=== PATIENT | female | born 1995 | race Caucasian/White ===

== ENCOUNTER → 2016-06-20 | Outpatient (CLI) | payer OTHER ==
[~2016-06-20] MED LIST: ONDA4TAB13 SL
== END | disposition home or self-care (01) ==
LOC: STAR 08:48
PROVIDERS: ATTEND Surgery
DX: Z02.9 Encounter for administrative examinations, unspecified (principal)

== ENCOUNTER 2016-06-26 11:01 | Day surgery (SDC) | payer OTHER ==
[~2016-06-26] VITALS: Ht 160 cm; Wt 80.5 kg
[2016-06-26 11:20] VITALS: BP 131/84
[2016-06-26] MEDS ORDERED: LACTATED RINGERS 1,000 ML IV SCH (11:23)
[2016-06-26] MEDS ORDERED: LIDOCAINE 1%, 2ML SQ PRN (11:30)
[2016-06-26 12:29] LABS: HCG UR OBC PASS
[2016-06-26] MEDS ORDERED: FENTANYL PF 100 MCG/2ML ONE ×3 (12:51→14:53)
[2016-06-26] MEDS ORDERED: BUPIVACAINE/PF-EPI 0.25% 1:200K ONE (12:53)
[2016-06-26] MEDS ORDERED: SUCCINYLCHOLINE 20 MG/ML, 10ML ONE (13:21)
[2016-06-26] MEDS ORDERED: PROPOFOL 10 MG/ML, 20ML ONE (13:21)
[2016-06-26] MEDS ORDERED: ONDANSETRON 2MG/ML, 2ML ONE ×2 (13:21→14:40)
[2016-06-26] MEDS ORDERED: DEXAMETHASONE 4 MG/ML, 1ML ONE (13:21)
[2016-06-26] MEDS ORDERED: NEOSTIGMINE 1 MG/ML, 10ML ONE (13:21)
[2016-06-26] MEDS ORDERED: KETOROLAC 30 MG/1 ML ONE (13:21)
[2016-06-26] MEDS ORDERED: ROCURONIUM 10 MG/ML ONE (13:21)
[2016-06-26] MEDS ORDERED: METOCLOPRAMIDE 5 MG/ML, 2ML ONE (13:21)
[2016-06-26] MEDS ORDERED: CEFAZOLIN 1,000 MG ONE (13:21)
[2016-06-26] MEDS ORDERED: GLYCOPYRROLATE 0.2MG/1ML ONE (13:21)
[2016-06-26] MEDS ORDERED: MEPERIDINE/PF 25MG/0.5ML IVPush PRN (14:00)
[2016-06-26] MEDS ORDERED: MIDAZOLAM 1 MG/ML, 2ML IV PRN (14:00)
[2016-06-26] MEDS ORDERED: LABETALOL 5MG/ML, 20ML IV PRN (14:00)
[2016-06-26] MEDS ORDERED: ONDANSETRON 2MG/ML, 2ML IVPush PRN (14:00)
[2016-06-26] MEDS ORDERED: HYDROmorphone 1 MG/ML, 1ML IV PRN (14:00)
[2016-06-26] MEDS ORDERED: PROMETHAZINE 25 MG/ML, 1ML IV PRN (14:00)
[2016-06-26] MEDS ORDERED: MEPERIDINE/PF 25MG/0.5ML ONE (14:15)
[2016-06-26] MEDS ORDERED: OXYcodone 5 MG/5 ML ORAL.SOL UDC ONE (14:16)
[2016-06-26] MEDS: FENTANYL PF 100 MCG/2ML IV PRN ×4 (14:25→15:13)
[2016-06-26] MEDS ORDERED: MIDAZOLAM 1 MG/ML, 2ML ONE (14:31)
[2016-06-26] MEDS: OXYcodone 5 MG/5 ML ORAL.SOL UDC PO PRN ×2 (15:10→15:11)
[2016-06-26] MEDS ORDERED: HYDROmorphone 2 MG/ML, 1ML ONE (15:19)
== END 2016-06-26 18:40 | disposition home or self-care (01) ==
LOC: OUT 11:01
PROVIDERS: ATTEND Surgery
DX: K81.1 Chronic cholecystitis (principal); Z72.89 Other problems related to lifestyle; Z83.3 Family history of diabetes mellitus; Z80.0 Family history of malignant neoplasm of digestive organs
CPT/HCPCS: 47562; 81025; 88304; J0330; J0690; J1100; J1170; J1885; J2175; J2250; J2405; J2704; J2710; J2765; J3010; J3490; J7120

== ENCOUNTER 2019-07-26 13:27 | Emergency (ER) | payer OTHER ==
[~2019-07-26] VITALS: Ht 160 cm; Wt 88.6 kg
[2019-07-26 13:34] VITALS: BP 134/87
[2019-07-26] MEDS ORDERED: MAALOX/HYOSCYAMINE/LIDOCAINE 45 ML BTL PO ONE (14:30)
[2019-07-26] MEDS ORDERED: FAMOTIDINE 20 MG/2 ML IVPush ONE (14:30)
[2019-07-26] MEDS ORDERED: SODIUM CHLORIDE FLUSH 10ML SYR IVF ONE (14:30)
[2019-07-26] MEDS ORDERED: ONDANSETRON 2MG/ML, 2ML IVPush ONE (14:30)
[2019-07-26] MEDS ORDERED: FAMOTIDINE 20 MG/2 ML ONE (14:36)
[2019-07-26] MEDS ORDERED: MAALOX/HYOSCYAMINE/LIDOCAINE 45 ML BTL ONE (14:36)
[2019-07-26] MEDS ORDERED: ONDANSETRON 2MG/ML, 2ML ONE (14:36)
[2019-07-26 14:53] LABS: BASOPHILS % (AUTO) 0 % (0-1); EOSINOPHILS # (AUTO) 0.01 x10^3/uL (0-0.4); EOSINOPHILS % (AUTO) 0 % (1-7); LYMPHOCYTES # (AUTO) 0.71 x10^3/uL (1-3.4); LYMPHOCYTES % (AUTO) 10 % (22-44); MD NO; MEAN CORPUSCULAR HEMOGLOBIN 29.3 pg (27.0-34.8); MEAN CORPUSCULAR HGB CONC 33.1 g/dL (32.4-35.8); MEAN CORPUSCULAR VOLUME 88.6 fL (80-100); MONOCYTES # (AUTO) 0.48 x10^3/uL (0.2-0.8); MONOCYTES % (AUTO) 7 % (2-9); NEUTROPHILS # (AUTO) 6.21 x10^3/uL (1.8-6.8); NEUTROPHILS % (AUTO) 84 % (42-75); PLATELET COUNT 216 x10^3/uL (130-400); RED BLOOD COUNT 4.96 x10^6/uL (3.82-5.3); RED CELL DISTRIBUTION WIDTH 13.8 % (9.6-15.2)
[2019-07-26 14:59] LABS: ALBUMIN 3.3 g/dL (3.4-5.0); ANION GAP 9 mmol/L (5-15); CALCIUM 8.1 mg/dL (8.5-10.1); CHLORIDE 109 mmol/L (98-107)
[2019-07-26 15:05] LABS: ALANINE AMINOTRANSFERASE 24 U/L (12-78); ALKALINE PHOSPHATASE 59 U/L (45-117); BILIRUBIN,TOTAL 0.4 mg/dL (0.2-1.0); CREATININE 0.86 mg/dL (0.55-1.02); TOTAL PROTEIN 7.7 g/dL (6.4-8.2)
[2019-07-26] MEDS ORDERED: PROMETHAZINE 25 MG/ML, 1ML IM ONE (16:00)
[2019-07-26] MEDS ORDERED: SODIUM CHLORIDE 0.9% 1,000ML IVBOLUS ONE ×2 (16:00)
[2019-07-26 16:02] LABS: MICROSCOPIC INDICATED
[2019-07-26] MEDS ORDERED: FOSFOMYCIN 3 GM PACKET ONE (16:51)
[2019-07-26] MEDS ORDERED: FOSFOMYCIN 3 GM PACKET PO ONE (17:00)
== END 2019-07-26 17:42 | disposition home or self-care (01) ==
LOC: ED 14:42
DX: K29.00 Acute gastritis without bleeding (principal); N30.00 Acute cystitis without hematuria; R10.84 Generalized abdominal pain
CPT/HCPCS: 36415; 80053; 81001; 83690; 84703; 85025; 87077; 87086; 96361; 96374; 96375; 99284; J2405; J3490; J7030; 87186

== ENCOUNTER 2019-12-24 20:33 | Emergency (ER) | payer OTHER ==
[~2019-12-24] VITALS: Ht 160 cm; Wt 81.0 kg
[2019-12-24] MEDS ORDERED: MORPHINE SULFATE 4 MG/ML, 1ML IVPush PRN (21:00)
[2019-12-24] MEDS ORDERED: SODIUM CHLORIDE FLUSH 10ML SYR IVF ONE (21:00)
[2019-12-24] MEDS ORDERED: ONDANSETRON 2MG/ML, 2ML IVPush ONE (21:00)
[2019-12-24 21:38] LABS: BASOPHILS % (AUTO) 0 % (0-1); EOSINOPHILS % (AUTO) 1 % (1-7); LYMPHOCYTES % (AUTO) 16 % (22-44); MEAN CORPUSCULAR HEMOGLOBIN 28.6 pg (27.0-34.8); MEAN CORPUSCULAR HGB CONC 33.4 g/dL (32.4-35.8); MEAN PLATELET VOLUME 8.4 fL (7.4-10.4); MONOCYTES % (AUTO) 6 % (2-9); NEUTROPHILS % (AUTO) 77 % (42-75); PLATELET COUNT 241 x10^3/uL (130-400); RED BLOOD COUNT 5.17 x10^6/uL (3.82-5.3); RED CELL DISTRIBUTION WIDTH 12.8 % (9.6-15.2)
[2019-12-24 21:39] LABS: MD NO
[2019-12-24 21:47] LABS: ALANINE AMINOTRANSFERASE 19 U/L (12-78); ALBUMIN 3.8 g/dL (3.4-5.0); ANION GAP 5 mmol/L (5-15); CALCIUM 9.3 mg/dL (8.5-10.1); CHLORIDE 110 mmol/L (98-107); CREATININE 0.94 mg/dL (0.55-1.02)
[2019-12-24 21:51] LABS: ALKALINE PHOSPHATASE 62 U/L (45-117); BILIRUBIN,TOTAL 0.3 mg/dL (0.2-1.0); TOTAL PROTEIN 7.9 g/dL (6.4-8.2)
[2019-12-24] MEDS ORDERED: ONDANSETRON 2MG/ML, 2ML ONE (23:05)
[2019-12-24] MEDS ORDERED: MORPHINE SULFATE 4 MG/ML, 1ML ONE (23:06)
[2019-12-24] MEDS ORDERED: HYDROmorphone 1 MG/ML, 1ML INJ ONE (23:18)
[2019-12-24] MEDS ORDERED: PROMETHAZINE 25 MG/ML, 1ML ONE (23:18)
--- NOTE | 2019-12-24 23:27 | NUR ---
medicated per order, on cont pulse ox will continue to monitor.
[2019-12-24] MEDS ORDERED: PROMETHAZINE 25 MG/ML, 1ML IM ONE (23:30)
[2019-12-24] MEDS ORDERED: HYDROmorphone 1 MG/ML, 1ML INJ IM ONE (23:30)
--- NOTE | 2019-12-24 23:59 | NUR ---
PT STATES STILL HAS "TIGHT" PAIN IN ABDOMEN BUT IS LESS THAN BEFORE, NAUSEA ALSO DECREASED. PT APPEARS MORE COMFORTABLE. STILL SAYS SHE CAN NOT PROVIDE URINE.
[2019-12-25] MEDS ORDERED: DIPHENHYDRAMINE 25 MG CAPSULE ONE (00:43)
[2019-12-25] MEDS ORDERED: METOCLOPRAMIDE 10MG TABLET ONE (00:44)
--- NOTE | 2019-12-25 00:48 | NUR ---
medicated per order, cassandra. po
--- NOTE | 2019-12-25 00:52 | NUR ---
pt up ambulates to bathroom with steady gait to provide urine sample.
[2019-12-25] MEDS ORDERED: DIPHENHYDRAMINE 25 MG CAPSULE PO ONE (01:00)
[2019-12-25] MEDS ORDERED: METOCLOPRAMIDE 10MG TABLET PO ONE (01:00)
[2019-12-25 01:11] VITALS: BP 104/57
[2019-12-25] MEDS ORDERED: ETOMIDATE 20 MG/10 ML ONE (01:25)
== END 2019-12-25 01:13 | disposition home or self-care (01) ==
LOC: ED 23:57
DX: R10.13 Epigastric pain (principal); R11.0 Nausea; K21.9 Gastro-esophageal reflux disease without esophagitis
CPT/HCPCS: 36415; 80053; 83690; 84703; 85025; 96372; 99284; J1170; J2550; Q0163

== ENCOUNTER → 2020-01-11 | Outpatient (CLI) | payer OTHER ==
[~2020-01-11] MED LIST changes: +OMNIPAQUE 350 MG/ML, 100ML BOTTLE ONE
== END | disposition home or self-care (01) ==
LOC: CFH 14:50
PROVIDERS: ATTEND Internal Medicine
DX: R63.4 Abnormal weight loss (principal); R11.0 Nausea; R10.13 Epigastric pain; R14.0 Abdominal distension (gaseous); Z90.49 Acquired absence of other specified parts of digestive tract
CPT/HCPCS: 74174; Q9967

== ENCOUNTER 2020-01-23 17:39 | Emergency (ER) | payer OTHER ==
[~2020-01-23] VITALS: Ht 160 cm; Wt 75.5 kg
[~2020-01-23 17:39] MED LIST changes: -OMNIPAQUE 350 MG/ML, 100ML BOTTLE ONE
[2020-01-23] MEDS ORDERED: SODIUM CHLORIDE FLUSH 10ML SYR IVF ONE (18:00)
[2020-01-23] MEDS ORDERED: SODIUM CHLORIDE 0.9% 1,000ML IVBOLUS ONE (18:00)
[2020-01-23] MEDS ORDERED: ONDANSETRON 2MG/ML, 2ML IVPush ONE (18:00)
--- NOTE | 2020-01-23 18:16 | NUR ---
PT C/O INABILTY TO EAT OR DRINK DUE TO NAUSEA AND ABD DISCOMFORT FOR 6 WEEKS. PT HAS BEEN DX WITH HIATAL HERNIA. PT DOES SEE A GI DOCTOR, BUT DOES NOT HAVE A DX. PT HAS LOST 20 LBS IN 6 WEEKS. PT DENIES VOMITING OR DIARRHEA. PT ALSO SAYS SHE BURPS A LOT.
[2020-01-23 18:29] LABS: BASOPHILS % (AUTO) 0 % (0-1); EOSINOPHILS % (AUTO) 2 % (1-7); LYMPHOCYTES % (AUTO) 22 % (22-44); MEAN CORPUSCULAR HEMOGLOBIN 28.8 pg (27.0-34.8); MEAN CORPUSCULAR HGB CONC 33.8 g/dL (32.4-35.8); MEAN PLATELET VOLUME 9.3 fL (7.4-10.4); MONOCYTES % (AUTO) 8 % (2-9); NEUTROPHILS % (AUTO) 68 % (42-75); PLATELET COUNT 242 x10^3/uL (130-400); RED BLOOD COUNT 5.73 x10^6/uL (3.82-5.3); RED CELL DISTRIBUTION WIDTH 13.2 % (9.6-15.2)
[2020-01-23 18:36] LABS: ALANINE AMINOTRANSFERASE 37 U/L (12-78); ALBUMIN 4.2 g/dL (3.4-5.0); ANION GAP 6 mmol/L (5-15); CALCIUM 9.3 mg/dL (8.5-10.1); CHLORIDE 108 mmol/L (98-107); CREATININE 0.93 mg/dL (0.55-1.02)
[2020-01-23 18:40] LABS: MD NO
[2020-01-23 18:41] LABS: ALKALINE PHOSPHATASE 74 U/L (45-117); BILIRUBIN,TOTAL 0.5 mg/dL (0.2-1.0); TOTAL PROTEIN 8.2 g/dL (6.4-8.2)
[2020-01-23] MEDS ORDERED: MAALOX/HYOSCYAMINE/LIDOCAINE 45 ML BTL PO ONE (19:00)
[2020-01-23] MEDS ORDERED: PROMETHAZINE 25 MG/ML, 1ML IM ONE (19:00)
[2020-01-23] MEDS ORDERED: FAMOTIDINE 20 MG/2 ML IV ONE (19:00)
--- NOTE | 2020-01-23 19:04 | NUR ---
BEDSIDE REPORT RECEIVED FROM ESTRELLITA DOTSON. ASSUMED CARE OF PT. PT PROVIDED URINE SAMPLE WHICH WAS LABELED AND WALKED TO LAB. MOTHER AT BEDSIDE. NO NEEDS AT THIS TIME. WILL CONTINUE TO MONITOR.
[2020-01-23] MEDS ORDERED: PROMETHAZINE 25 MG/ML, 1ML ONE (19:09)
[2020-01-23] MEDS ORDERED: FAMOTIDINE 20 MG/2 ML ONE (19:10)
[2020-01-23] MEDS ORDERED: ONDANSETRON 2MG/ML, 2ML ONE (19:10)
[2020-01-23] MEDS ORDERED: MAALOX/HYOSCYAMINE/LIDOCAINE 45 ML BTL ONE (19:10)
--- NOTE | 2020-01-23 19:27 | NUR ---
PT MEDICATED PER EMAR. 5 RIGHTS ADDRESSED.
[2020-01-23 19:40] LABS: MICROSCOPIC AUTO
--- NOTE | 2020-01-23 20:13 | NUR ---
PT AMBULATORY TO RESTROOM. BACK TO BED WITHOUT DIFFICULTY
[2020-01-23 20:32] VITALS: BP 107/65
--- NOTE | 2020-01-23 21:02 | NUR ---
Patient/Caregiver given discharge instructions and they have confirmed that they understand the instructions. Patient ambulatory with steady gait.
== END 2020-01-23 21:19 | disposition home or self-care (01) ==
LOC: ED 20:38
DX: N30.00 Acute cystitis without hematuria (principal); R10.84 Generalized abdominal pain; R00.0 Tachycardia, unspecified; R42 Dizziness and giddiness; G89.29 Other chronic pain; K21.9 Gastro-esophageal reflux disease without esophagitis; Z90.49 Acquired absence of other specified parts of digestive tract
CPT/HCPCS: 36415; 80053; 81001; 83690; 84703; 85025; 87077; 87086; 87186; 93005; 96372; 96374; 99284; J2550; J7030

== ENCOUNTER 2020-01-26 07:31 | Outpatient (CLI) | payer OTHER | END 2020-01-26 23:59 | disposition home or self-care (01) | LOC: RAD 07:31 | PROVIDERS: ATTEND Internal Medicine | DX: R63.4 Abnormal weight loss (principal); R11.0 Nausea; R10.9 Unspecified abdominal pain; R74.8 Abnormal levels of other serum enzymes | CPT/HCPCS: 74240 ==